=== PATIENT | male | born 1970 | race Caucasian/White ===

== ENCOUNTER 2017-03-11 16:27 | Emergency (ER) | payer OTHER ==
[~2017-03-11] VITALS: Ht 182.9 cm; Wt 88.5 kg
--- NOTE | 2017-03-11 16:38 | ED AMS/SEIZURE/WEAK/DIZZY ---
History of Present Illness General Chief Complaint: General Adult Stated Complaint: PT IS HAVING RINGING IN EARS,VOMITING,SHAKEY, Source: patient, old records Exam Limitations: no limitations Vital Signs & Intake/Output Vital Signs & Intake/Output Vital Signs Date Time Temp Pulse Resp B/P B/P Pulse O2 O2 Flow FiO2 Mean Ox Delivery Rate 03/11 1928 97.0 77 18 117/65 100 Room Air 03/11 1653 99 Room Air 03/11 1633 96.6 98 18 106/57 100 Room Air Room Air Allergies Coded Allergies: NO KNOWN ALLERGIES (11/02/11) Reconcile Medications Meclizine HCl 25 MG TABLET 1 TAB PO TIDPRN PRN DIZZINESS Ondansetron (Zofran Odt) 4 MG TAB.RAPDIS 1 TAB SL TID PRN NAUSEA Triage Nurses Notes Reviewed? yes Onset: Abrupt Duration: day(s): (1), constant, waxing and waning Timing: recent history Injury Environment: home Severity: moderate Severity Numbers: 8 No Modifying Factors: none Associated Symptoms: DENIES HPI: 46-year-old male with no medical history presents with his for evaluation complaining of left ear tinnitus, dizziness worse with movement of his eyes nausea and vomiting since today. The patient states that he's had left ear pain for the past 1 week. He went to an urgent care who told him that he had some wax in his ears however there is no other signs of infection. He denies recent head trauma fever chills cough congestion. He has not taken anything for symptoms no sick contacts no abdominal pain diarrhea chest pain palpitations. No modifying factors or associated symptoms otherwise. There is been no change in his mental status (MER BOOTHE) Past History Travel History Traveled to [place] past 21 day No Medical History Any Pertinent Medical History? none Neurological: NONE EENT: NONE Cardiovascular: NONE Respiratory: NONE Gastrointestinal: NONE Hepatic: NONE Renal: NONE Musculoskeletal: NONE Psychiatric: NONE Endocrine: NONE Blood Disorders: NONE Cancer(s): NONE WANT AD CLERK/Reproductive: NONE Tetanus Vaccine: 11/02/11 Surgical History Surgical History: non-contributory Psychosocial History What is your primary language Malaysian Tobacco Use: Never used ETOH Use: occasional use Illicit Drug Use: denies illicit drug use Family History Hx Contributory? No (MER BOOTHE) Review of Systems Review of Systems Constitutional: Reports: see HPI. All Other Systems: Reviewed and Negative Comments Review of systems: See HPI, All other systems negative. Constitutional, no chills no fever, no malaise HEENT: No visual changes no sore throat no congestion Cardiovascular: No chest pain , no palpitation Skin: no rashes, no change in skin Respiratory: No dyspnea no cough no sputum GI: No nausea no vomiting, no diarrhea, : No dysuria Muscle skeletal: No joint pain, no back pain, no neck pain, Neurologic: No numbness no confusion, no headache Psych: No stress Heme/endocrine: No bruising Immunology: No lymphadenopathy (MER BOOTHE) Physical Exam Physical Exam General Appearance: well developed/nourished Comments: Well-developed well-nourished person in no acute distress HEENT: Normal EENT exam; PERRL, EOMI, no nystagmus. HEAD is atraumatic. moist mucous membranes. Neck: Supple, normal range of motion Back: Nontender, no CVA tenderness. Full range of motion Cardiovascular: Regular rate and rhythms no murmurs rubs Respiratory: . No respiratory distress. Patient speaking in full complete sentences. Breath sounds clear to auscultation bilaterally: NO W/R/R Abdomen: Soft, nontender Extremity: No edema, full range of motion of extremities Neuro: Alert oriented x3, motor sensory normal, cranial nerves II through XII grossly intact. There were no obvious focal neurologic abnormalities. Skin: No appreciable rash on exposed skin, skin is warm and dry. Psych: Mood and affect is normal, memory and judgment is normal. Core Measures ACS in differential dx? No CVA/TIA Diagnosis: No Severe Sepsis Present: No Septic Shock Present: No (MER BOOTHE) Progress Differential Diagnosis: arrythmia, anemia, benign positional vertigo, CVA/stroke , electrolyte imbalance, intracranial Hem., intracranial mass/tumor, Meniere's disease, post-traumatic vertigo, subarachnoid Hem., vertebrobasilar insuff Plan of Care: Orders Procedure Date/time Status Telemetry/Camera Engineer 03/11 170 Active COMPREHENSIVE METABOLIC PANEL 03/11 170 Complete CBC WITHOUT DIFFERENTIAL 03/11 1700 Complete Laboratory Tests 03/11/17 1710: Anion Gap 10, Estimated GFR > 60, BUN/Creatinine Ratio 26.3 H, Glucose 125 H, Calcium 9.6, Total Bilirubin 1.2, AST 34, ALT 37, Alkaline Phosphatase 68, Total Protein 6.2 L, Albumin 4.0, Globulin 2.2, Albumin/Globulin Ratio 1.8, CBC w Diff NO MAN DIFF REQ, RBC 5.23, MCV 87.3, MCH 29.0, RDW 13.9, MPV 8.3, Gran % 76.7 H, Lymphocytes % 16.1 L, Monocytes % 5.9, Eosinophils % 0.9, Basophils % 0.4, Absolute Granulocytes 4.9, Absolute Lymphocytes 1.0 L, Absolute Monocytes 0.4, Absolute Eosinophils 0.1, Absolute Basophils 0, PUBS MCHC 33.2 Labs ordered patient medicated Valium 2 IV Zofran 4 IV IV fluids we'll continue to monitor Repeat evaluation patient reports to feeling slightly improved discussed with [employer]'s lab results date 03/11/2017 7:28:21 PM case discussed with Dr. Khan agrees with plan patient reports to feeling improved his symptoms have resolved. Patient ambulatory around the emergency room with steady gait I discussed with the patient at length all of their results. I had an extensive conversation regarding need for close follow up with their primary care physician this week as well as return precautions. I answered all of their questions, they feel comfortable with the plan and follow-up care. I discussed with the patient/family the medications that they will receive. I gave them signs and symptoms that could indicate an adverse reaction. I have advised them to limit their activities until they can see how they respond to the medication. (MER BOOTHE) Initial ED EKG: none (MER BOOTHE) Departure Departure Time of Disposition: 1919 Disposition: HOME OR SELF CARE Condition: Stable Clinical Impression Primary Impression: Vertigo Referrals: Fernando ISRAEL MD (PCP/Family) Additional Instructions: Meclizine and Zofran as directed follow up with her primary care physician return to the ER with concerns. this was sent to [facility] Departure Forms: Customer Survey General Discharge Information Prescriptions: Current Visit Scripts Meclizine HCl 1 TAB PO TIDPRN PRN DIZZINESS #15 TAB Ondansetron (Zofran Odt) 1 TAB SL TID PRN NAUSEA #15 TAB (MER BOOTHE) PA/LAUNDRY PRESS OPERATOR Co-Sign Statement Statement: ED Attending supervision documentation- I saw and evaluated the patient. I have also reviewed all the pertinent lab results and diagnostic results. I agree with the findings and the plan of care as documented in the PA's/LAUNDRY PRESS OPERATOR's documentation. x I have reviewed the ED Record and agree with the PA's/LAUNDRY PRESS OPERATOR's documentation. [] Additions or exceptions (if any) to the PAs/LAUNDRY PRESS OPERATOR's note and plan are summarized below: [] (INNA SPENCER,VON)
[2017-03-11 17:24] LABS: ABSOLUTE BASOPHIL COUNT 0 /CUMM (0.0-0.2); ABSOLUTE EOSINOPHIL COUNT 0.1 /CUMM (0.0-0.7); ABSOLUTE GRANULOCYTE CT 4.9 /CUMM (1.4-6.5); ABSOLUTE MONOCYTE COUNT 0.4 /CUMM (0.10-0.60); BASOPHIL % 0.4 % (0.0-2.0); EOSINOPHIL % 0.9 % (0-5); GRANULOCYTE % 76.7 % (42.2-75.2); HEMATOCRIT 45.7 % (42-52); MEAN CORPUSCULAR HGB CONC 33.2 G/DL (33.0-37.0); MEAN CORPUSCULAR VOLUME 87.3 FL (80.0-94.0); MEAN PLATELET VOLUME 8.3 FL (7.4-10.4); PLATELET COUNT 122 /CUMM (130-400); RBC DISTRIBUTION WIDTH 13.9 % (11.5-14.5); RED BLOOD CELL CT 5.23 /CUMM (4.70-6.10); WHITE BLOOD CELL COUNT 6.4 /CUMM (4.8-10.8)
[2017-03-11] MEDS ORDERED: MECLIZINE HCL25 MG PO (19:21)
[2017-03-11] MEDS ORDERED: ZOFRAN ODT4 M1 SL (19:21)
[2017-03-11 19:28] VITALS: BP 117/65
== END 2017-03-11 19:31 ==
LOC: ERH 16:27
PROVIDERS: Physician Assistant Medical
DX: R42 Dizziness and giddiness (principal)
CPT/HCPCS: 96374; 96375; J2405; J3360